=== PATIENT | male | born 1980 | race Caucasian/White ===

== ENCOUNTER 2017-01-27 19:47 | Emergency (ER) | payer MEDICAID ==
[~2017-01-27] VITALS: Ht 180.3 cm; Wt 120.2 kg
[~2017-01-27 19:47] MED LIST: KLONOPIN1 MG PO; NORVASC5 MG PO; PRILOSEC40 MG PO; RENVELA800 MG PO; SEROQUEL300 MG PO; SEROQUEL50 MG PO; ULTRAM50 MG PO
[2017-01-27] MEDS ORDERED: PROVENTIL HFA6.7 GM INH (22:33)
== END 2017-01-27 21:27 | disposition short-term general hospital (02) ==
LOC: ER 19:47
DX: J40 Bronchitis, not specified as acute or chronic (principal); N19 Unspecified kidney failure; R53.1 Weakness; F41.9 Anxiety disorder, unspecified; Z88.0 Allergy status to penicillin